=== PATIENT | male | born 1945 | race Caucasian/White ===

== ENCOUNTER → 2022-11-24 15:59 | Outpatient (CLI) | payer MEDICARE, OTHER, SELFPAY ==
[2022-11-24 16:44] LABS: Hematocrit 22.7 % (41-53); Mean Corpuscular Hemoglobin 32.6 PG (26-34); Mean Corpuscular Volume 93.1 fL (80-100); Platelet Count 142 X10^3/uL (150-400); Red Blood Cell Count 2.44 X10^6/uL (4.5-5.9); Red Cell Distribution Width 14.7 % (11.6-14.8); White Blood Cell Count 8.4 X10^3/uL (4.5-11.0)
[2022-11-24 17:09] LABS: Alanine Aminotransferase 29 IU/L (<50); Albumin 3.8 g/dL (3.5-5.0); Albumin Globulin Ratio 1.6 (1.0-2.8); Alkaline Phosphatase 50 U/L (38-126); Aspartate Aminotransferase 39 IU/L (17-59); BUN Creatinine Ratio 35.4 (6-22); Bilirubin Total 0.2 mg/dL (0.2-1.3); Blood Urea Nitrogen 28 mg/dL (9-20); Calcium 8.5 mg/dL (8.4-10.2); Carbon Dioxide 25 mmol/L (22-32); Chloride 106 mmol/L (98-107); Cholesterol 100 mg/dL (140-199); Estimated Glomerular Filt Rate > 60 mL/min (>60); Globulin 2.4 g/dL (1.7-4.1); Glucose 130 mg/dL (80-110); HDL Cholesterol 44 mg/dL (40-60); HEMOLYSIS < 15 (0-50); LDL Cholesterol Calculated 46 mg/dL (<100); Potassium 3.7 mmol/L (3.4-5.1); Sodium 136 mmol/L (137-145); Total Protein 6.2 g/dL (6.3-8.2); Triglycerides 51 mg/dL (35-150); VLDL Cholesterol Calculated 10 mg/dL (2-30)
[2022-11-24 17:18] LABS: NT-proBNP (BNP-Adult 18+) 154 pg/mL (<450)
[2022-11-24 17:34] LABS: Thyroid Stimulating Hormone 3.02 uIU/mL (0.47-4.68)
== END ==
PROVIDERS: Family Provider Family Medicine; PCP Family Medicine; Referring Provider Nurse Practitioner; Visit Provider Nurse Practitioner
DX: I45.10 Unspecified right bundle-branch block (principal); I25.10 Atherosclerotic heart disease of native coronary artery without angina pectoris; R06.09 Other forms of dyspnea; G71.3 Mitochondrial myopathy, not elsewhere classified
CPT/HCPCS: 36415; 80053; 80061; 83880; 84443; 85027

== ENCOUNTER 2022-11-26 10:43 | Inpatient (IN) | payer MEDICARE, OTHER, SELFPAY ==
[2022-11-26] VITALS (15 sets, daily range): BP systolic 118–151; BP diastolic 53–72; PULSE 50–63; RESP 12–19; TEMP 35.3–36.6; O2SAT 96–100; BMI 22.8
[2022-11-26] MEDS: PANTOPRAZOLE 40 MG VIAL 80 MG IV (11:05)
[2022-11-26 11:25] LABS: Add Manual Diff / Slide Review NO; Basophils Absolute Auto 0 /uL (0-100); Basophils Percent Auto 0.1 % (0-2); Eosinophils Absolute Auto 0 /uL (0-450); Hematocrit 21.3 % (41-53); Hemoglobin 7.2 g/dL (13.5-17.5); Lymphocytes Absolute Auto 1100 /uL (1100-4500); Lymphocytes Percent Auto 19.6 % (25-40); Mean Corpuscular HGB Conc 33.9 % (30-36); Mean Corpuscular Hemoglobin 31.9 PG (26-34); Mean Corpuscular Volume 94.2 fL (80-100); Monocytes Absolute Auto 500 /uL (0-900); Monocytes Percent Auto 8.6 % (3-14); Neutrophils Absolute Auto 3900 /uL (1500-7000); Neutrophils Percent Auto 71.7 % (50-75); Platelet Count 136 X10^3/uL (150-400); Red Blood Cell Count 2.27 X10^6/uL (4.5-5.9); Red Cell Distribution Width 15.5 % (11.6-14.8); White Blood Cell Count 5.5 X10^3/uL (4.5-11.0)
[2022-11-26 11:30] LABS: Prothrombin Time 11.2 SECONDS (10.1-12.7)
[2022-11-26 11:33] LABS: Alanine Aminotransferase 35 IU/L (<50); Albumin 3.7 g/dL (3.5-5.0); Albumin Globulin Ratio 1.5 (1.0-2.8); Alkaline Phosphatase 53 U/L (38-126); Aspartate Aminotransferase 37 IU/L (17-59); BUN Creatinine Ratio 23.4 (6-22); Bilirubin Total 0.3 mg/dL (0.2-1.3); Blood Urea Nitrogen 18 mg/dL (9-20); Calcium 8.2 mg/dL (8.4-10.2); Carbon Dioxide 24 mmol/L (22-32); Chloride 104 mmol/L (98-107); Estimated Glomerular Filt Rate > 60 mL/min (>60); Globulin 2.4 g/dL (1.7-4.1); Glucose 115 mg/dL (80-110); HEMOLYSIS < 15 (0-50); PTT Partial Thromboplastin Tim 23 SECONDS (26-36); Potassium 3.8 mmol/L (3.4-5.1); Sodium 135 mmol/L (137-145); Total Protein 6.1 g/dL (6.3-8.2)
--- NOTE | 2022-11-26 11:46 | ED_ITS ---
HPI - GI Bleed General Chief complaint: GI Bleed Stated complaint: DR bartholomew anemic needs blood Time Seen by Provider: 11/26/22 11:44 Source: patient Mode of arrival: Ambulatory History of Present Illness HPI Narrative: Patient is 77-year-old male presents today at request of manager multimedia. He is history of coronary artery disease he had stents placed in January of 2022 in you to presents today with anemia. He says he had an appointment with Cardiology this week for increasing shortness of breath with exertion routine blood showed anemia with a hemoglobin of 8.0 hematocrit of 22.7. He denies any black tarry stools but reports that he has had 1 episode of bright red blood. He is not ever had a colonoscopy. He denies any nausea or vomiting. He is had some increased fatigue. Related Data Home Medications Medication Instructions Recorded Confirmed aspirin 81 mg chewable tablet 81 mg PO DAILY 11/26/22 11/26/22 atorvastatin 40 mg tablet 40 mg PO DAILY 11/26/22 11/26/22 clopidogrel 75 mg tablet 75 mg PO DAILY 11/26/22 11/26/22 Allergies Allergy/AdvReac Type Severity Reaction Status Date / Time No Known Drug Allergies Allergy Verified 11/26/22 10:48 Review of Systems Review of Systems ROS Unobtainable: All systems reviewed & are unremarkable except as noted in HPI and below Patient History Family History Brother Age: 76 MS (multiple sclerosis) Social History household members: none Smoking Status: Unknown if ever smoked alcohol intake: current Smoking Status: Unknown if ever smoked alcohol intake frequency: 0-2 drinks per day Substance Use Type: does not use Exam Initial Vital Signs Initial Vital Signs: Vital Signs Temperature 97.0 F L 11/26/22 10:46 Pulse Rate 57 L 11/26/22 10:46 Respiratory Rate 15 11/26/22 10:46 Blood Pressure 151/67 H 11/26/22 10:46 Pulse Oximetry 100 11/26/22 10:46 Oxygen Delivery Method Room Air 11/26/22 10:46 GENERAL: Alert pleasant 77-year-old male and in no acute distress. HEENT: Head atraumatic,EOMI, pupils reactive, face symmetric, moist mucous membranes CARDIOVASCULAR: Regular rate and rhythm without murmurs, rubs or gallops. RESPIRATORY: Breath sounds equal bilaterally, no wheezes rales or rhonchi. ABDOMEN: Soft, nontender. Normoactive bowel sounds all 4 quadrants. No guarding or rebound. RECTAL: Deferred EXTREMITIES: Normal range of motion, no clubbing or edema. Neurovascularly intact NEUROLOGICAL: Alert and oriented x4. Cranial nerves intact SKIN: Warm, dry, no laceration, no petechiae, no rashes or lesions. Course Orders Ordered: ED Orders 11/26/22 11:00 EKG-12 Lead Stat 11/26/22 11:13 Complete Blood Count AUTO DIFF Stat Comprehensive Metabolic Panel Stat PRBC [Packed Cells] Stat PTT Partial Thromboplastin Aj Stat Prothrombin Time INR Stat Type and Screen Stat Acetaminophen (Acetaminophen 325 Mg Tablet) 650 mg PO Q6H PRN PRN Reason: Fever/Mild Pain (1-3) Atorvastatin Calcium (Atorvastatin 20 Mg Tablet) 10 mg PO BEDTIME HUMAIRA Melatonin (Melatonin 3 Mg Tablet) 6 mg PO BEDTIME PRN PRN Reason: Insomnia Naloxone HCl (Naloxone 0.4 Mg/Ml Vial) 0.2 mg IV Q2MIN PRN PRN Reason: Opiate Reversal Pantoprazole Sodium (Pantoprazole 40 Mg Vial) 40 mg IV BID HUMAIRA Sodium Chloride (Sodium Chloride 0.9% Flush) 10 ml IV PRN PRN PRN Reason: Flush Sodium Chloride (Sodium Chloride 0.9% Flush) 10 ml IV BID HUMAIRA Discontinued Medications Pantoprazole Sodium (Pantoprazole 40 Mg Vial) 80 mg IV NOW ONE Stop: 11/26/22 10:52 Last Admin: 11/26/22 11:05 Dose: 80 mg Documented By: LA Polyethylene Glycol/Electrolytes ([id number]/Sod Sulf,Bicarb,Cl/Kcl 4,000 Ml Solution) 4,000 ml PO NOW ONE Stop: 11/26/22 16:34 Last Admin: 11/26/22 18:22 Dose: 4,000 ml Documented By: ARCADIO Vital Signs Vital signs: Vital Signs - 8 hr 11/26/22 10:46 11/26/22 12:53 11/26/22 11:38 Temperature 97.0 F L 97.5 F L Pulse Rate 57 L 55 L 55 L Respiratory Rate 15 16 12 Blood Pressure 151/67 H 121/61 Pulse Oximetry 100 100 Oxygen Delivery Method Room Air 11/26/22 12:00 11/26/22 12:00 11/26/22 12:55 Temperature Pulse Rate 60 53 L Respiratory Rate 19 Blood Pressure 141/70 H Pulse Oximetry 100 100 Oxygen Delivery Method 11/26/22 12:55 11/26/22 13:00 Temperature Pulse Rate 55 L Respiratory Rate Blood Pressure 121/61 Pulse Oximetry 100 Oxygen Delivery Method MDM - GI Bleed Lab Data 11/26/22 17:29 11/26/22 11:13 Labs: Lab Results 11/26/22 11/26/22 11/26/22 Range/Units 11:13 11:13 11:13 WBC 5.5 (4.5-11.0) X10^3/uL RBC 2.27 L (4.5-5.9) X10^6/uL Hgb 7.2 L (13.5-17.5) g/dL Hct 21.3 L (41-53) % MCV 94.2 (80-100) fL MCH 31.9 (26-34) PG MCHC 33.9 (30-36) % RDW 15.5 H (11.6-14.8) % Plt Count 136 L (150-400) X10^3/uL Neut % (Auto) 71.7 (50-75) % Lymph % (Auto) 19.6 L (25-40) % [place] % (Auto) 8.6 (3-14) % Eos % (Auto) 0.0 L (2-4) % Baso % (Auto) 0.1 (0-2) % Neut # (Auto) 3900 (3034-6281) /uL Lymph # (Auto) 1100 (2851-9942) /uL [place] # (Auto) 500 (0-900) /uL Eos # (Auto) 0 (0-450) /uL Baso # (Auto) 0 (0-100) /uL PT 11.2 (10.1-12.7) SECONDS INR 1.0 (0.9-1.3) APTT 23 L (26-36) SECONDS Sodium 135 L (137-145) mmol/L Potassium 3.8 (3.4-5.1) mmol/L Chloride 104 (98-107) mmol/L Carbon Dioxide 24 (22-32) mmol/L BUN 18 (9-20) mg/dL Creatinine 0.77 (0.66-1.25) mg/dL Estimated GFR > 60 (>60) mL/min BUN/Creatinine Ratio 23.4 H (6-22) Glucose 115 H (80-110) mg/dL Calcium 8.2 L (8.4-10.2) mg/dL Magnesium (1.6-2.3) mg/dL Total Bilirubin 0.3 (0.2-1.3) mg/dL AST 37 (17-59) IU/L ALT 35 (<50) IU/L Alkaline Phosphatase 53 (38-126) U/L Total Protein 6.1 L (6.3-8.2) g/dL Albumin 3.7 (3.5-5.0) g/dL Globulin 2.4 (1.7-4.1) g/dL Albumin/Globulin Ratio 1.5 (1.0-2.8) Blood Type Antibody Screen Crossmatch 11/26/22 11/26/22 Range/Units 11:13 11:13 WBC (4.5-11.0) X10^3/uL RBC (4.5-5.9) X10^6/uL Hgb (13.5-17.5) g/dL Hct (41-53) % MCV (80-100) fL MCH (26-34) PG MCHC (30-36) % RDW (11.6-14.8) % Plt Count (150-400) X10^3/uL Neut % (Auto) (50-75) % Lymph % (Auto) (25-40) % [place] % (Auto) (3-14) % Eos % (Auto) (2-4) % Baso % (Auto) (0-2) % Neut # (Auto) (9638-4700) /uL Lymph # (Auto) (2995-2695) /uL [place] # (Auto) (0-900) /uL Eos # (Auto) (0-450) /uL Baso # (Auto) (0-100) /uL PT (10.1-12.7) SECONDS INR (0.9-1.3) APTT (26-36) SECONDS Sodium (137-145) mmol/L Potassium (3.4-5.1) mmol/L Chloride (98-107) mmol/L Carbon Dioxide (22-32) mmol/L BUN (9-20) mg/dL Creatinine (0.66-1.25) mg/dL Estimated GFR (>60) mL/min BUN/Creatinine Ratio (6-22) Glucose (80-110) mg/dL Calcium (8.4-10.2) mg/dL Magnesium 2.1 (1.6-2.3) mg/dL Total Bilirubin (0.2-1.3) mg/dL AST (17-59) IU/L ALT (<50) IU/L Alkaline Phosphatase (38-126) U/L Total Protein (6.3-8.2) g/dL Albumin (3.5-5.0) g/dL Globulin (1.7-4.1) g/dL Albumin/Globulin Ratio (1.0-2.8) Blood Type O Positive Antibody Screen Negative Crossmatch See Detail Point of Care Testing Stool Occult Blood Positive ECG Data Interpretation: Sinus rhythm rate 55 KS interval 156 QRS [address] changes T-wave inversions MDM Narrative Medical decision making narrative: Patient is 77-year-old male with known history of coronary artery disease presenting today with increasing shortness of breath with exertion and fatigue. He is found to be anemic today with hemoglobin now 7.2 and hematocrit 21.3. Coags are within normal limits. High suspicion for slow GI bleed although patient denies symptoms. He is hemodynamically stable without any hypotension or tachycardia. No significant electrolyte abnormality or AK. He is given 80 mg of Protonix in the ED and 2 units of packed red blood cells have been ordered. Dr. Vines, evaluation engineer cardiology updated on patient's acute bleeding and taking Plavix secondary to recent stent placement with less than 1 year. He recommended stopping Plavix actively bleeding. Dr. Rodrigues updated on patient's symptoms test results and accepts patient Dr. Lopez notified Discharge Plan Departure Patient Disposition: Admitted as Observation Clinical Impression: Acute GI bleeding, Anemia Admit Date/Time: 11/26/22 13:01 Admit Provider: Alden Rodrigues
--- NOTE | 2022-11-26 13:09 | PC.NURSE ---
Report given to CESARIO Soria AC. Pt being transferred to acute care with blood infusing. [place].
--- NOTE | 2022-11-26 13:45 | PM.HP.1 ---
History of Present Illness History of Present Illness Chief complaint: DR bartholomew anemic needs blood Narrative: Karson Montano is a 77-year-old male with past medical history of coronary artery disease s/p coronary stents in January 2022, and hyperlipidemia who presents with acute bloody diarrhea. Patient states he began feeling more fatigued and SOB earlier this week. Then this morning he developed bloody stool. He has not noticed any blood in his stool or black stools in the past. He was found to have a Hgb of 8 which then dropped to 7.2 in the ED. Given 2 units of PRBC and admitted for colonoscopy. Patient says he has never had a colonoscopy. He doesn't smoke. He is on plavix for a heart stent in Jan 2022. Cardiology contacted by the ED who recommended stopping plavix and anemia workup. [facility] Family History (Updated 10/01/16 @ 00:00 by Conversion Provider) Brother Age: 76 MS (multiple sclerosis) Social History household members: none Smoking Status: Unknown if ever smoked alcohol intake: current Meds Home Medications and Allergies Home Medications Medication Instructions Recorded Confirmed Type atorvastatin 10 mg tablet (Lipitor) 10 mg PO HS #90 tabs 11/15/16 11/26/22 Rx clopidogrel 75 mg tablet 75 mg PO DAILY 11/26/22 11/26/22 History methylprednisolone 4 mg tablets in 0 mg PO DIRECTED 11/26/22 11/26/22 History a dose pack Allergies Allergy/AdvReac Type Severity Reaction Status Date / Time No Known Drug Allergies Allergy Verified 11/26/22 10:48 Review of Systems Review of Systems Narrative: All other systems reviewed with the patient and are negative unless otherwise stated. Exam Vital Signs (past 8 hours): - 11/26/22 10:46 11/26/22 12:53 11/26/22 11:38 Temperature 97.0 F L 97.5 F L Pulse Rate 57 L 55 L 55 L Respiratory Rate 15 16 12 Blood Pressure 151/67 H 121/61 Pulse Oximetry 100 100 Oxygen Delivery Method Room Air 11/26/22 12:00 11/26/22 12:00 11/26/22 12:55 Temperature Pulse Rate 60 53 L Respiratory Rate 19 Blood Pressure 141/70 H Pulse Oximetry 100 100 Oxygen Delivery Method 11/26/22 12:55 11/26/22 13:00 Temperature Pulse Rate 55 L Respiratory Rate Blood Pressure 121/61 Pulse Oximetry 100 Oxygen Delivery Method Oxygen Delivery Method Room Air Narrative Exam Narrative: GEN: no acute distress HEENT: moist mucous membranes, PERRL NECK: trachea midline, no JVD CV: regular rate and rhythm, no murmurs PULM: clear bilaterally ABD: soft, nontender, nondistended, no organomegaly EXT: warm and well perfused with no edema NEURO: awake, alert, oriented, no focal deficits Objective Labs 11/26/22 11:13 11/26/22 11:13 Labs: Laboratory Results - last 24 hr 11/26/22 11/26/22 11/26/22 11:13 11:13 11:13 WBC 5.5 RBC 2.27 L Hgb 7.2 L Hct 21.3 L MCV 94.2 MCH 31.9 MCHC 33.9 RDW 15.5 H Plt Count 136 L Neut % (Auto) 71.7 Lymph % (Auto) 19.6 L [place] % (Auto) 8.6 Eos % (Auto) 0.0 L Baso % (Auto) 0.1 Neut # (Auto) 3900 Lymph # (Auto) 1100 [place] # (Auto) 500 Eos # (Auto) 0 Baso # (Auto) 0 PT 11.2 INR 1.0 APTT 23 L Sodium 135 L Potassium 3.8 Chloride 104 Carbon Dioxide 24 BUN 18 Creatinine 0.77 Estimated GFR > 60 BUN/Creatinine Ratio 23.4 H Glucose 115 H Calcium 8.2 L Total Bilirubin 0.3 AST 37 ALT 35 Alkaline Phosphatase 53 Total Protein 6.1 L Albumin 3.7 Globulin 2.4 Albumin/Globulin Ratio 1.5 Blood Type Antibody Screen Crossmatch 11/26/22 11:13 WBC RBC Hgb Hct MCV MCH MCHC RDW Plt Count Neut % (Auto) Lymph % (Auto) [place] % (Auto) Eos % (Auto) Baso % (Auto) Neut # (Auto) Lymph # (Auto) [place] # (Auto) Eos # (Auto) Baso # (Auto) PT INR APTT Sodium Potassium Chloride Carbon Dioxide BUN Creatinine Estimated GFR BUN/Creatinine Ratio Glucose Calcium Total Bilirubin AST ALT Alkaline Phosphatase Total Protein Albumin Globulin Albumin/Globulin Ratio Blood Type O Positive Antibody Screen Negative Crossmatch See Detail Assessment & Plan Assessment & Plan narrative: # acute GI bleed -patient presents with bloody stools -etiology unclear as patient has never had a colonoscopy, differential includes colon cancer, diverticulosis or hemorrhoids -PPI b.i.d. -general surgery consulted, prep for colonoscopy in a.m. -clear liquid diet # acute blood loss anemia -hemoglobin 7.2 down from 8 on 11/24, ED ordered 2 units PRBCs -trend hemoglobin q.6 hours -transfuse less than 8 hemoglobin due to CAD # CAD s/p stents -currently on Plavix since January 2022 -ED spoke with cards who was okay with stopping Plavix early due to GI bleed -hold home Plavix # hyperlipidemia -continue home statin Code status is full code. DVT prophylaxis with SCDs. Proxy is friend Sherley. I have reviewed home meds and used all available resources to reconcile the home meds. This patient will be admitted as inpatient and will require greater than 2 midnights of hospital time to treat acute GI bleed.
[2022-11-26 14:14] LABS: Magnesium 2.1 mg/dL (1.6-2.3)
--- NOTE | 2022-11-26 16:03 | PC.NURSE ---
Patient arrived from ED to room 218 with first unit of Blood running. VSS, afebrile on RA. SB on telemetry per patient he is an avid hiker. He denies dizziness, n/v, SOB. He reports last bloody BM at approximately 945. Currently receiving second unit of blood, and tolerating well. VSS, afebrile. He is oriented to the room and unit routine. Continuous monitoring.
[2022-11-26 17:58] LABS: Hemoglobin 9.2 g/dL (13.5-17.5)
[2022-11-26] MEDS: PEG3350/SOD SULF,BICARB,CL/KCL 4,000 ML SOLUTION 4000 ML PO (18:22)
[2022-11-26] MEDS: ATORVASTATIN 20 MG TABLET 10 MG PO (20:48)
[2022-11-26] MEDS: SODIUM CHLORIDE 0.9% FLUSH 10 ML IV (20:48)
[2022-11-26] MEDS: PANTOPRAZOLE 40 MG VIAL IV (20:48)
[2022-11-26 21:01] LABS: Appearance Urine UA CLEAR; Bilirubin Urine UA NEGATIVE (NEGATIVE); Color Urine UA YELLOW; Glucose Urine UA NEGATIVE (Negative); Ketones Urine UA NEGATIVE (NEGATIVE); Leukocyte Esterase Urine UA NEGATIVE (NEGATIVE); Nitrite Urine UA NEGATIVE (Negative); Occult Blood Urine UA NEGATIVE (Negative); Protein Urine UA NEGATIVE (Negative); Urobilinogen Urine UA 0.2 E.U./dL (0.2)
[2022-11-26 21:13] LABS: Bacteria Urine None Seen; Culture Indicated Urine Cult Not Indicated; RBC Urine None Seen (0-5/HPF); Squamous Epithelial Cell Urine None Seen (0-5/HPF); WBC Urine None Seen (0-5/HPF)
--- NOTE | 2022-11-26 22:13 | PC.NURSE ---
Patient is alert and oriented. Breath sounds CTA with RA sat of 99%. HRR but bradycardic with rate of 53 per telemtry reading which was SB w/BBB. Denies dizziness or lightheadedness. Denies nausea but is having abdominal cramps related to Go-[place]yt[place] prep. BT are hypoactive and abdomen is slightly distended. Denies dysuria with urination. Is independent with mobility. Wearing bilateral calf SCD's which he is able to get on/off independently. Fall risk score is moderate but alarm not in use at this time; patient verbalizes to call for assist if feeling weak or dizzy when getting out of bed.
[2022-11-26] MEDS: SODIUM CHLORIDE 0.9% 1,000 ML 100 ML IV (23:58)
[2022-11-27] VITALS (11 sets, daily range): BP systolic 82–143; BP diastolic 41–69; PULSE 42–56; RESP 12–20; TEMP 35.9–36.8; O2SAT 96–100; BMI 22.8
--- NOTE | 2022-11-27 | PATH_ITS ---
[facility] Accession Number: [id number] No. of containers..01 Tissue . 01 Material submitted: . gastrointestinal site - GASTRIC BIOPSY . 01 Diagnosis: SPecimen designated Gastric, Biopsy: Small bowel type mucosa with chronic and focal mild active inflammation. No Helicobacter pylori organisms identified on immunohistochemical evaluation. No dysplasia, or malignancy identified. See comment. [facility] 12/06/2022 1323 Local . 01 Comment: Correlation with biopsy site is recommended. . 01 Electronically signed: . April Patel MD, Pathologist NPI- [id number] . 01 Gross description: . GASTRIC BIOPSY: Received in formalin are 2 fragment(s) of hodges, soft tissue measuring 0.1 x 0.1 x 0.1 cm to 0.3 x 0.3 x 0.3 cm submitted entirely in 1 cassette(s) /[facility] 12/02/2022 0107 Local . 01 Microscopic: . A Helicobacter pylori immunostain is performed and no Helicobacter pylori organisms are seen. The control stained as expected. . . . * This test was developed and its performance characteristics determined by [facility]. It has not been cleared or approved by the U.S. Food and Drug Administration. The FDA has determined that such clearance or approval is not necessary. This test is used for clinical purposes. It should not be regarded as investigational or for research. . 01 Pathologist provided ICD-10: K29.70 . 01 CPT . 420654, M60645 Specimen Comment: A courtesy copy of this report has been sent to [phone] Performed at: 01 [facility] [address] [place] [address] [address], [place], [place] [id number] MD Ed Torres MD Phone: [phone]
[2022-11-27 04:36] LABS: Add Manual Diff / Slide Review NO; BUN Creatinine Ratio 19.5 (6-22); Basophils Absolute Auto 0 /uL (0-100); Basophils Percent Auto 0.2 % (0-2); Blood Urea Nitrogen 16 mg/dL (9-20); Calcium 7.5 mg/dL (8.4-10.2); Carbon Dioxide 27 mmol/L (22-32); Chloride 104 mmol/L (98-107); Eosinophils Absolute Auto 100 /uL (0-450); Eosinophils Percent Auto 1.2 % (2-4); Estimated Glomerular Filt Rate > 60 mL/min (>60); Glucose 98 mg/dL (80-110); HEMOLYSIS < 15 (0-50); Hematocrit 24.3 % (41-53); Hemoglobin 8.4 g/dL (13.5-17.5); Lymphocytes Absolute Auto 2500 /uL (1100-4500); Lymphocytes Percent Auto 43.3 % (25-40); Mean Corpuscular HGB Conc 34.6 % (30-36); Mean Corpuscular Hemoglobin 31.7 PG (26-34); Mean Corpuscular Volume 91.6 fL (80-100); Monocytes Absolute Auto 500 /uL (0-900); Monocytes Percent Auto 8.9 % (3-14); Neutrophils Absolute Auto 2700 /uL (1500-7000); Neutrophils Percent Auto 46.4 % (50-75); Platelet Count 120 X10^3/uL (150-400); Potassium 3.3 mmol/L (3.4-5.1); Red Blood Cell Count 2.65 X10^6/uL (4.5-5.9); Red Cell Distribution Width 15.7 % (11.6-14.8); Sodium 135 mmol/L (137-145); White Blood Cell Count 5.8 X10^3/uL (4.5-11.0)
[2022-11-27] MEDS: POTASSIUM CHLORIDE 20 MEQ TAB 40 MEQ PO (07:42)
[2022-11-27] MEDS: PANTOPRAZOLE 40 MG VIAL IV (08:46)
--- NOTE | 2022-11-27 09:31 | CM.DANOTE ---
DCP: Chart review for case, met with patient at bedside, they agree to case management assessment. Completed DCP assessment based on information available. Patient is 77 year old admitted for anemia. States he was sent over from clinic PCP Enedina No secondary to lower GI bleed and known anemia. States SD last year with PCI in [facility], and FU with Dr. Jane Steward cardiology in [place] at [facility]. State he has had his 2 planned units of PRBC and done prep for colonoscopy. States looking forward to going home when workup done. PCP: Enedina No, Payer: Medicare DME: None DCP: DC home, states his care is in parking lot. Pending medical clearances. Jessica Owens RN CM Discharge Planning/Care Management CM Discharge Assessment Start: 11/27/22 09:26 Freq: Status: Active Protocol: Document 11/27/22 09:26 BQ (Rec: 11/27/22 09:29 BQ [id number]) Discharge Planning Assessment Assigned Senior Java Programmer Analyst Jessica Owens DPOA/Assigned Designee Name Son Advance Directives? No History Provided By Patient Has Patient been admitted in last 30 No days? Prior Living Arrangements House Household Members none Type of transporation used prior to Drives own vehicle admit Independent with ADL's Yes Is patient alert and oriented? Yes Caregiver for Another No Barriers to Discharge No Referrals Initiated None needed Whiteboard Updated in Patient Room with Yes name and ext. # of Senior Java Programmer Analyst Review Status In Process Next Review Type Continued Stay Review
[2022-11-27] MEDS: SODIUM CHLORIDE 0.9% 1,000 ML 100 ML IV (10:37)
--- NOTE | 2022-11-27 11:41 | PM.CN ---
History of Present Illness Consult details Date Patient Seen: 11/27/22 Time Patient Seen: 11:41 Chief complaint: DR [place] anemic needs blood Narrative: 77-year-old man admitted to the hospital for management of a GI bleed. He presented to the [facility] Emergency Department 11/26 following blood per rectum and associated shortness of breath. Initial hematocrit was 21 platelets 120 and he received 2 units of packed red blood cells now 24. He is never had a prior colonoscopy. No history of peptic ulcer disease. He has a history of coronary artery stent last year and he takes Plavix as well as 81 mg of aspirin daily. Cardiology service was contacted by the emergency department recommended discontinuation of his antiplatelet medication and anemia workup. Meds Home Medications and Allergies Home Medications Medication Instructions Recorded Confirmed Type aspirin 81 mg chewable tablet 81 mg PO DAILY 11/26/22 11/26/22 History atorvastatin 40 mg tablet 40 mg PO DAILY 11/26/22 11/26/22 History clopidogrel 75 mg tablet 75 mg PO DAILY 11/26/22 11/26/22 History Allergies Allergy/AdvReac Type Severity Reaction Status Date / Time No Known Drug Allergies Allergy Verified 11/26/22 10:48 Exam Vital Signs (past 8 hours): - 11/27/22 04:06 11/27/22 08:13 Temperature 96.6 F L 97.4 F L Pulse Rate 55 L 54 L Respiratory Rate 20 17 Blood Pressure 124/52 L 122/60 Pulse Oximetry 100 99 Oxygen Flow Rate 0 0 Oxygen Delivery Method Room Air Oxygen Flow Rate 0 Narrative Exam Narrative: General adult man alert oriented no acute distress Abdomen soft nontender nondistended. Objective Labs 11/27/22 03:50 11/27/22 03:50 Labs: Laboratory Results - last 24 hr 11/26/22 11/26/22 11/26/22 11:13 11:13 17:29 WBC RBC Hgb 9.2 L Hct MCV MCH MCHC RDW Plt Count Neut % (Auto) Lymph % (Auto) [place] % (Auto) Eos % (Auto) Baso % (Auto) Neut # (Auto) Lymph # (Auto) [place] # (Auto) Eos # (Auto) Baso # (Auto) Sodium Potassium Chloride Carbon Dioxide BUN Creatinine Estimated GFR BUN/Creatinine Ratio Glucose Calcium Magnesium 2.1 Urine Color Urine Appearance Urine pH Ur Specific [place] Urine Protein Urine Glucose (UA) Urine Ketones Urine Occult Blood Urine Nitrate Urine Bilirubin Urine Urobilinogen Ur Leukocyte Esterase Urine RBC Urine WBC Ur Squamous Epith Cells Urine Bacteria Ur Culture Indicated? Blood Type O Positive Antibody Screen Negative Crossmatch See Detail 11/26/22 11/26/22 11/27/22 20:35 23:00 03:50 WBC 5.8 RBC 2.65 L Hgb 9.0 L 8.4 L Hct 24.3 L MCV 91.6 MCH 31.7 MCHC 34.6 RDW 15.7 H Plt Count 120 L Neut % (Auto) 46.4 L D Lymph % (Auto) 43.3 H D [place] % (Auto) 8.9 Eos % (Auto) 1.2 L Baso % (Auto) 0.2 Neut # (Auto) 2700 Lymph # (Auto) 2500 [place] # (Auto) 500 Eos # (Auto) 100 Baso # (Auto) 0 Sodium Potassium Chloride Carbon Dioxide BUN Creatinine Estimated GFR BUN/Creatinine Ratio Glucose Calcium Magnesium Urine Color Yellow Urine Appearance Clear Urine pH 7.0 Ur Specific [place] 1.010 Urine Protein Negative Urine Glucose (UA) Negative Urine Ketones Negative Urine Occult Blood Negative Urine Nitrate Negative Urine Bilirubin Negative Urine Urobilinogen 0.2 Ur Leukocyte Esterase Negative Urine RBC None seen Urine WBC None seen Ur Squamous Epith Cells None seen Urine Bacteria None seen Ur Culture Indicated? Cult not indicated Blood Type Antibody Screen Crossmatch 11/27/22 03:50 WBC RBC Hgb Hct MCV MCH MCHC RDW Plt Count Neut % (Auto) Lymph % (Auto) [place] % (Auto) Eos % (Auto) Baso % (Auto) Neut # (Auto) Lymph # (Auto) [place] # (Auto) Eos # (Auto) Baso # (Auto) Sodium 135 L Potassium 3.3 L Chloride 104 Carbon Dioxide 27 BUN 16 Creatinine 0.82 Estimated GFR > 60 BUN/Creatinine Ratio 19.5 Glucose 98 Calcium 7.5 L Magnesium Urine Color Urine Appearance Urine pH Ur Specific [place] Urine Protein Urine Glucose (UA) Urine Ketones Urine Occult Blood Urine Nitrate Urine Bilirubin Urine Urobilinogen Ur Leukocyte Esterase Urine RBC Urine WBC Ur Squamous Epith Cells Urine Bacteria Ur Culture Indicated? Blood Type Antibody Screen Crossmatch [facility] Family History Brother Age: 76 MS (multiple sclerosis) Social History household members: none Tobacco & Substance Use Smoking Status: Unknown if ever smoked alcohol intake: current Assessment & Plan Assessment and plan (1) Acute GI bleeding: Status: Acute Assessment & Plan narrative: 77-year-old man on antiplatelet medication admitted to the hospital with a GI bleed hemodynamically stable. I discussed my recommendations with the patient that we proceed with esophagoduodenoscopy to evaluate for upper GI bleed sources as well as colonoscopy. We discussed possible diagnoses including both benign and malignant disease. An overview of the procedure was described. Procedural risks including hemorrhage, missed diagnosis, intestinal injury any anesthetic complications were reviewed. His questions have been answered and he is in agreement with this plan.
--- NOTE | 2022-11-27 13:30 | PM.OP.EC ---
Operative Date/Time/Diagnoses Date of procedure: 11/27/22 Time of procedure: 13:30 Pre-op diagnosis: GI bleed Post-op diagnosis: other (Gastritis, internal hemorrhoids) Procedure & Clinicians Study performed: Esophagoduodenoscopy and colonoscopy Same procedure as scheduled: Yes Indications: GI bleed Surgeon: Mariano Kowalski Procedure Notes Procedure in detail: The history and physical was performed/updated and the patient is ASA class is 2 E. The procedure was discussed in detail with the patient. Potential risks complications including infection, bleeding, missed diagnosis, perforation, need for surgery, and were explained. Their questions were answered and informed consent was obtained. Patient placed in left lateral decubitus position. Time out was performed. Procedural sedation was administered by Anesthesia. A bite block was placed. the scope was inserted into the mouth and advanced through the esophagus and into the stomach. There was gastritis most notable within the pyloric channel biopsy was performed with forceps. No distinct ulceration. The duodenum was normal to the 2nd portion. The scope was withdrawn into the esophagus the Z line was seen at 40 cm from the incisions. There was no Mccall's esophagitis, esophageal masses or strictures. Stomach was desufflated and scope removed. Examination began with a thorough inspection of the perianal area there was no evidence of fissures, fistulae, external hemorrhoids or cutaneous malignancy. The colonoscopy scope was then placed into the anal canal and was advanced to the cecum, which was identified by the ileocecal valve, the appendiceal orifice and the confluence of the taenia. The scope was then slowly withdrawn examining colon thoroughly in all directions, irrigating it of any residual stool. Colon was notable for residual melanotic stool. Quality of the prep was fair but there were no major masses or polyps. There were grade 2 internal hemorrhoids on retroflexion within the rectum. The withdrawal time was 7 minutes. Findings: gastritis Specimen(s): other (Gastric) Impression: Gastritis Post-procedure Plan for aftercare: Continue PPI. Stable for discharge Disposition: same day surgery
--- NOTE | 2022-11-27 15:01 | PM.DS.1 ---
History of Present Illness History of Present Illness Chief complaint: DR bartholomew anemic needs blood Narrative: Karson Montano is a 77-year-old male with past medical history of coronary artery disease s/p coronary stents in January 2022, and hyperlipidemia who presents with acute bloody diarrhea. Patient states he began feeling more fatigued and SOB earlier this week. Then this morning he developed bloody stool. He has not noticed any blood in his stool or black stools in the past. He was found to have a Hgb of 8 which then dropped to 7.2 in the ED. Given 2 units of PRBC and admitted for colonoscopy. Patient says he has never had a colonoscopy. He doesn't smoke. He is on plavix for a heart stent in Jan 2022. Cardiology contacted by the ED who recommended stopping plavix and anemia workup. Discharge Providers Provider Date of admission: 11/26/22 13:01 Discharge Date: 11/27/22 Primary care physician: Enedina No MD Consults: 11/26/22 13:21 Consult to General Surgery Routine Comment: Consulting Provider: Analy Bacon Reason for consultation: GI bleed Has provider been notified: Yes Discharge provider: Alden Rodrigues DO Summary Hospital Course Discharge Diagnosis: # acute GI bleed -patient presents with bloody stools -etiology unclear as patient has never had a colonoscopy, differential includes colon cancer, diverticulosis or hemorrhoids -PPI b.i.d. -general surgery consulted and patient underwent EGD colonoscopy on 11/27 which only showed internal hemorrhoids, old blood in colon and gastritis, no active bleeding -discharged on daily PPI x4 weeks # acute blood loss anemia -hemoglobin 7.2 down from 8 on 11/24, ED ordered 2 units PRBCs -trend hemoglobin q.6 hours -transfuse less than 8 hemoglobin due to CAD -Hgb stable # CAD s/p stents -currently on Plavix since January 2022 -ED spoke with cards who was okay with stopping Plavix early due to GI bleed -hold home Plavix -resumed home aspirin on dc with PPI # hyperlipidemia -continue home statin Hospital Course: Admitted for hematochezia and found to have blood counts of 7.2. Was given 2 units of PRBCs. Underwent EGD and colonoscopy which only showed gastritis, internal hemorrhoids and old blood in the colon. No active bleeding. Was placed on daily PPI for 4 weeks. Spoke with Cardiology who recommended stopping Plavix. Home aspirin was continued. And was advised that if he continues to have GI bleed in the future he should see GI for a PillCam study. He should also have his blood counts checked in 1 month by his PCP. Time Spent with Patient Time spent: Greater than 30 minutes Exam Vital Signs (past 8 hours): - 11/27/22 08:13 11/27/22 12:53 11/27/22 13:33 Temperature 97.4 F L 98.3 F 97.2 F L Pulse Rate 54 L 50 L 42 L Respiratory Rate 17 16 20 Blood Pressure 122/60 141/69 H 82/41 L Pulse Oximetry 99 100 98 Oxygen Delivery Method Room Air Room Air Oxygen Flow Rate 0 11/27/22 13:37 11/27/22 13:44 11/27/22 13:48 Temperature Pulse Rate 49 L 53 L 56 L Respiratory Rate 12 15 19 Blood Pressure 95/44 L 119/50 L 117/67 Pulse Oximetry 96 98 100 Oxygen Delivery Method Room Air Room Air Room Air Oxygen Flow Rate 11/27/22 13:38 11/27/22 13:00 Temperature 96.6 F L Pulse Rate 51 L 53 L Respiratory Rate 13 17 Blood Pressure 89/48 L 143/51 H Pulse Oximetry 100 100 Oxygen Delivery Method Room Air Oxygen Flow Rate 0 Oxygen Delivery Method Room Air Oxygen Flow Rate 0 Narrative Exam Narrative: GEN: no acute distress HEENT: moist mucous membranes, PERRL NECK: trachea midline, no JVD CV: regular rate and rhythm, no murmurs PULM: clear bilaterally ABD: soft, nontender, nondistended, no organomegaly EXT: warm and well perfused with no edema NEURO: awake, alert, oriented, no focal deficits Objective Labs 11/27/22 03:50 11/27/22 03:50 Labs: Laboratory Results - last 24 hr 11/26/22 11/26/22 11/26/22 11:13 17:29 20:35 WBC RBC Hgb 9.2 L Hct MCV MCH MCHC RDW Plt Count Neut % (Auto) Lymph % (Auto) [place] % (Auto) Eos % (Auto) Baso % (Auto) Neut # (Auto) Lymph # (Auto) [place] # (Auto) Eos # (Auto) Baso # (Auto) Sodium Potassium Chloride Carbon Dioxide BUN Creatinine Estimated GFR BUN/Creatinine Ratio Glucose Calcium Urine Color Yellow Urine Appearance Clear Urine pH 7.0 Ur Specific [place] 1.010 Urine Protein Negative Urine Glucose (UA) Negative Urine Ketones Negative Urine Occult Blood Negative Urine Nitrate Negative Urine Bilirubin Negative Urine Urobilinogen 0.2 Ur Leukocyte Esterase Negative Urine RBC None seen Urine WBC None seen Ur Squamous Epith Cells None seen Urine Bacteria None seen Ur Culture Indicated? Cult not indicated Blood Type O Positive Antibody Screen Negative Crossmatch See Detail 11/26/22 11/27/22 11/27/22 23:00 03:50 03:50 WBC 5.8 RBC 2.65 L Hgb 9.0 L 8.4 L Hct 24.3 L MCV 91.6 MCH 31.7 MCHC 34.6 RDW 15.7 H Plt Count 120 L Neut % (Auto) 46.4 L D Lymph % (Auto) 43.3 H D [place] % (Auto) 8.9 Eos % (Auto) 1.2 L Baso % (Auto) 0.2 Neut # (Auto) 2700 Lymph # (Auto) 2500 [place] # (Auto) 500 Eos # (Auto) 100 Baso # (Auto) 0 Sodium 135 L Potassium 3.3 L Chloride 104 Carbon Dioxide 27 BUN 16 Creatinine 0.82 Estimated GFR > 60 BUN/Creatinine Ratio 19.5 Glucose 98 Calcium 7.5 L Urine Color Urine Appearance Urine pH Ur Specific [place] Urine Protein Urine Glucose (UA) Urine Ketones Urine Occult Blood Urine Nitrate Urine Bilirubin Urine Urobilinogen Ur Leukocyte Esterase Urine RBC Urine WBC Ur Squamous Epith Cells Urine Bacteria Ur Culture Indicated? Blood Type Antibody Screen Crossmatch [facility] Family History Brother Age: 76 MS (multiple sclerosis) Social History household members: none Smoking Status: Unknown if ever smoked alcohol intake: current Discharge Plan Discharge Plan Provider Discharge Comment: You were admitted with acute GI bleeding and found to have low blood counts. We stopped your Plavix with the okay from cardiology. Endoscopy and colonoscopy which only showed gastritis and some internal hemorrhoids. Old blood was seen in the colon but no active bleeding was found. Please take Protonix daily for 30 days to heal your gastritis. You may continue taking aspirin daily for your heart. I would have your blood counts checked in a month by your PCP. If you bleed again I would get a referral to see GI to do a PillCam study. Discharge orders & Medications Discharge Orders: Discharge (Order); Ordered 11/27/22 Ordered By: Alden Rodrigues Prescriptions: New pantoprazole [Protonix] 40 mg tablet,delayed release (DR/EC) 40 mg PO DAILY 28 Days Qty: 30 0RF Continued atorvastatin 40 mg tablet 40 mg PO DAILY aspirin 81 mg Tablet,Chewable 81 mg PO DAILY Discontinued clopidogrel 75 mg tablet 75 mg PO DAILY Follow up/Referrals: Enedina No MD [Primary Care Provider] - 2 Weeks Visit Report/Discharge Packet Stand Alone Forms: Patient Portal/API, Stroke Signs & Symptoms Discharge Data Primary Care Provider: Enedina No
--- NOTE | 2022-11-27 17:35 | PC.NURSE ---
Pt is A&Ox4. VSS, HR bradycardic 50's per baseline. He is on RA and independent in the room. He is kept NPO for procedure and taken to PRE OP early this afternoon. He returns from PACU A&Ox4, slightly groggy from anesthesia. He denies dizziness, VSS, afebrile. He tolerates lunch and dinner well and is ambulatory in his room. MD at bedside this evening clearing patient for discharge home. Patient instructed to call friend for a ride as he parked his vehicle here. He acknowledged agreement and understanding. He verbalized understanding of meds, symptoms worsening as well as follow up needed appointments. Heis escorted via w/ch to hospital entrance in [facility] with all of his belongings including cell phone and wallet for discharge home at approximately 1720.
== END 2022-11-27 17:20 | disposition home or self-care (01) | DRG 378 ==
LOC: ED 13:00 → AC 13:13
PROVIDERS: Surgery; Admitting Provider Student in an Organized Health Care Education/Training Program; Emergency Provider Emergency Medicine; Family Provider Family Medicine; PCP Family Medicine; Referring Provider Emergency Medicine; Visit Provider Student in an Organized Health Care Education/Training Program
PROC: 0DJD8ZZ Inspection of Lower Intestinal Tract, Via Natural or Artificial Opening Endoscopic (ICD-10-PCS; CPT 45378; principal; 2022-11-27 13:00)
PROC: 0DJ08ZZ Inspection of Upper Intestinal Tract, Via Natural or Artificial Opening Endoscopic (ICD-10-PCS; CPT 43235; 2022-11-27 13:00)
DX: K29.71 Gastritis, unspecified, with bleeding (principal); D62 Acute posthemorrhagic anemia; K64.8 Other hemorrhoids; I25.10 Atherosclerotic heart disease of native coronary artery without angina pectoris; E78.5 Hyperlipidemia, unspecified; Z95.5 Presence of coronary angioplasty implant and graft; Z79.02 Long term (current) use of antithrombotics/antiplatelets
CPT/HCPCS: 36415; 36430; 43239; 45378; 80048; 80053; 80061; 81001; 82272; 83735; 83880; 84443; 85018; 85025; 85027; 85610; 85730; 86850; 86900; 86901; 93005; 96374; 99232; 99285; P9016; C9113; J2704

== ENCOUNTER 2023-01-18 18:07 | Emergency (ER) | payer MEDICARE, OTHER, SELFPAY ==
[2022-11-26 13:55] VITALS: BMI 22.8
[2023-01-18 18:46] VITALS: BP 133/63; PULSE 53; RESP 14; TEMP 36.6; O2SAT 97; BMI 22.9
--- NOTE | 2023-01-18 19:02 | ED_ITS ---
HPI - Extremity Injury (Lower) General Chief Complaint: Extremity Injury, Lower Stated Complaint: increasing pain in Rhip T-1 Time Seen by Provider: 01/18/23 19:01 Source: patient Mode of arrival: Wheelchair History of Present Illness HPI Narrative: 77-year-old male with a history of hyperlipidemia presents with family in the chief complaint of severe right hip pain when ambulating. 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 He did not fall on it or suffer any direct traumatic injury. He had significant pain with weight-bearing and noted improvement when sitting. He denies any numbness, tingling or weakness. He is otherwise well and free of complaint. He presented to the emergency department in [place] [employer] yesterday and had an x-ray that showed no fracture that was obvious but suggested there may be an avulsion versus calcific tendinosis and an MRI was ordered which showed no significant traumatic injury. He was given a prescription for Percocet and encouraged to return if symptoms worsened. He denies any new trauma or injury but states that over the course of the day his pain has been significant when he tries to walk. Related Data Home Medications Medication Instructions Recorded Confirmed aspirin 81 mg chewable tablet 81 mg PO DAILY 11/26/22 11/26/22 atorvastatin 40 mg tablet 40 mg PO DAILY 11/26/22 11/26/22 Allergies Allergy/AdvReac Type Severity Reaction Status Date / Time No Known Drug Allergies Allergy Verified 01/18/23 18:51 Review of Systems Review of Systems Narrative: GENERAL: Denies chills, fatigue, malaise, fever, sweats. HEENT: Denies sinus pain, ear pain, sore throat, difficulty swallowing, dizziness. RESPIRATORY: Denies dyspnea, cough, wheezing, hemoptysis, sputum. CARDIOVASCULAR: Denies chest pain, palpitations, orthopnea, edema, GASTROINTESTINAL: Denies nausea, vomiting, abdominal pain, diarrhea, constipation, melena. : Denies dysuria, frequency, incontinence, hematuria, urinary retention. MUSCULOSKELETAL: See HPI SKIN: Denies rash, skin lesions, or other NEUROLOGIC: Denies weakness, headache, numbness, change in speech, confusion, seizures, incoordination. PSYCHIATRIC: No concerning psychosocial issues. 12 point review of systems is negative except for those stated above Patient History Family History Brother Age: 76 MS (multiple sclerosis) Social History household members: none Smoking Status: Unknown if ever smoked alcohol intake: current Smoking Status: Unknown if ever smoked alcohol intake frequency: 0-2 drinks per day Substance Use Type: does not use Exam Narrative Exam Narrative: GENERAL: [77] year old patient appears stated age. Well-developed patient, in mild distress. HEAD: Atraumatic. Normocephalic. EYES: Pupils equal round and reactive. Extraocular motions intact. No scleral icterus. No injection or drainage. ENT: Nose without bleeding, purulent drainage. Throat without erythema, tonsillar hypertrophy or exudate. Airway patent. NECK: Trachea midline. Non tender CARDIOVASCULAR: Regular rate and rhythm without murmurs, gallops, or rubs. RESPIRATORY: Clear to auscultation. Breath sounds equal bilaterally. No wheezes, rales, or rhonchi. GASTROINTESTINAL: Abdomen soft, non-tender, nondistended. EXTREMITIES: R hip pain on ambulating, minimal pain with axial loading. No numbness, weakness, tingling or obvious deformity BACK: Nontender without deformity or crepitance. No flank tenderness. NEURO: AOx3. SKIN: No rash or erythema of visible areas Initial Vital Signs Initial Vital Signs: Vital Signs Temperature 97.9 F 01/18/23 18:46 Pulse Rate 53 L 01/18/23 18:46 Respiratory Rate 14 01/18/23 18:46 Blood Pressure 133/63 01/18/23 18:46 Pulse Oximetry 97 01/18/23 18:46 Oxygen Delivery Method Room Air 01/18/23 18:46 Course Orders Ordered: Discontinued Medications Oxycodone HCl (Oxycodone Ir 5 Mg Tablet) 5 mg PO NOW ONE Stop: 01/18/23 20:41 Last Admin: 01/18/23 20:45 Dose: 5 mg Documented By: CHIKIS Vital Signs Vital signs: Vital Signs - 8 hr 01/18/23 23:31 01/19/23 00:27 Temperature 98.5 F 98 F Pulse Rate 60 Respiratory Rate 16 16 Blood Pressure 143/69 H 144/76 H Pulse Oximetry 98 98 Oxygen Delivery Method Room Air Room Air MDM - Extremity Injury (Lower) MDM Narrative Medical decision making narrative: [77] year old patient presents with hip pain Multiple etiologies for patient's symptoms considered including, but not limited to: [fracture vs. dislocation vs. labral injury vs. other] Prior Charts reviewed in our EMR Primary Historian: patient Imaging reviewed: Records reviewed from visit in [place], MRI shows no acute injury, x-ray shows possible avulsion. CT of bony pelvis acquired tonight without evidence of fracture Patient's symptoms improved over duration of stay with above-stated therapies. Findings and discharge diagnosis discussed with patient/family followed by verbalization of understanding Return precautions discussed with patient/family whom verbalize understanding of diagnosis and plan Discharge Plan Departure Patient Disposition: Home Clinical Impression: Acute pain of right hip Instructions: DI for Hip Pain Activity Restrictions/Additional Instructions: *You have been diagnosed with [right hip pain. As we discussed your history and physical exam are reassuring. We have reviewed recently acquired x-ray, CT scan and MRI and there is no significant or obvious finding that requires a specific intervention.] *What to do: *Please consider routine use of anti-inflammatories to help with your discomfort. Otherwise continue taking your prescribed medications [ ] New medication prescriptions sent to your pharmacy: [ ] [ ] New medication written as a paper prescription [ ] No new medications given *Please follow up with your [facility]. Please call the office later today, let them know you were seen in the emergency department and we would like you seen in follow-up. *Return to Emergency Department if you should have any new, worsening or concerning symptoms, such as [fever greater than 101 F, shaking chills, worsening pain, persistent vomiting or other bothersome symptoms] Prescriptions: No Action atorvastatin 40 mg tablet 40 mg PO DAILY aspirin 81 mg Tablet,Chewable 81 mg PO DAILY Referrals: Enedina No MD [Primary Care Provider] - Hernesto Arguelles MD [Physician] - Stand Alone Forms: Patient Portal/API
[2023-01-18 20:14] VITALS: BP 152/70; PULSE 51; RESP 16; TEMP 36.6
--- NOTE | 2023-01-18 20:40 | DI.CT.S_ITS ---
PROCEDURE: CT PEL WO CON INDICATIONS: known avulsion fracture R hip, plain films outside facility TECHNIQUE: Noncontrast 3 mm axial sections acquired through the bony pelvis, with coronal and sagittal reformatting. COMPARISON: None available. FINDINGS: Image quality: Excellent. Bones: No definite acute fracture or dislocation in the hips. The bony pelvis appears intact. There is a mild superior endplate compression fracture of the L5 vertebral body with approximately 30% loss of height. No retropulsed fragments in the spinal canal. There is moderate to severe facet arthropathy at L4-5. Minimal anterolisthesis demonstrated at L4-5. Soft tissues: There are linear calcifications along the distal gluteus medius tendon extending to the greater trochanter. 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 IMPRESSION: 1. Mild superior endplate compression fracture of the L5 vertebral body of indeterminate acuity. No associated retropulsed fragments in the spinal canal. 2. Linear calcifications along the right gluteus medius tendon extending to the greater trochanter suggestive of calcific tendinitis. 3. No definite fracture or dislocation in the hips. Dictated by: Ed De Jesus M.D. on 01/18/2023 at 22:28 Approved by: Ed De Jesus M.D. on 01/18/2023 at 22:32
[2023-01-18] MEDS: OXYCODONE IR 5 MG TABLET PO (20:45)
[2023-01-18 23:31] VITALS: BP 143/69; RESP 16; TEMP 36.9; O2SAT 98
[2023-01-19 00:27] VITALS: BP 144/76; PULSE 60; RESP 16; TEMP 36.6; O2SAT 98
== END 2023-01-19 00:28 | disposition home or self-care (01) ==
PROVIDERS: Emergency Provider Emergency Medicine; Family Provider Family Medicine; PCP Family Medicine
DX: M25.551 Pain in right hip (principal)
CPT/HCPCS: 72192; 99284

== ENCOUNTER → 2023-01-31 19:34 | Outpatient (CLI) | payer MEDICARE, OTHER, SELFPAY ==
[2022-11-26 13:55] VITALS: BMI 22.8
--- NOTE | 2023-01-31 19:36 | DI.MRI.S_ITS ---
PROCEDURE: MR LUMBAR SPINE WO CON INDICATIONS: Radiculopathy, lumbar region TECHNIQUE: Noncontrast sagittal T1 spin echo and T2 fast echo, sagittal STIR, and T2 fast spin echo through the lumbar spine. In cases with scoliosis, additional coronal T2 fast spin echo may be performed. COMPARISON: None. FINDINGS: Image quality: Motion degraded. Alignment and Curvature: Grade 1 anterolisthesis of L4 on L5. 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 Bone Marrow: Marrow is of normal overall signal. No acute vertebral body compression fractures. Spinal Cord: Conus medullaris terminates at the L1 level. Visualized cord demonstrates normal signal and size. Paraspinous Soft Tissues: Limited evaluation of the paraspinous soft tissue secondary to motion artifact T12-L1: No central canal or neural foraminal stenosis. L1-L2: No central canal or neural foraminal stenosis. L2-L3: Mild posterior disc bulge. Facet arthropathy. Mild central canal stenosis. Mild bilateral neural foraminal stenosis. L3-L4: Desiccation and small posterior disc bulge. Facet arthropathy and thickened ligamentum flavum. Mild to central canal stenosis. Moderate to severe right and mild left neural foraminal stenosis. L4-L5: Mild posterior disc bulge. Facet arthropathy and thickening of ligamentum flavum. Moderate central canal stenosis. Moderate to severe bilateral neural foraminal stenosis. L5-S1: Facet arthropathy. No central canal stenosis. Mild right neural foraminal stenosis. No left neural foraminal stenosis. IMPRESSION: 1. Motion degraded exam which limits evaluation. 2. Multilevel degenerative changes of the lumbar spine as described above. There is transitional anatomy with sacralization of the L5 vertebral body. Recommend correlation with radiographs prior to any intervention. 3. Moderate central canal stenosis at L4-5. 4. Moderate to severe bilateral neural foraminal stenosis at L4-5 and on the right at L3-L4. See above for additional levels of mild neural foraminal stenosis. Dictated by: Joaquin Hoffman M.D. on 02/01/2023 at 8:49 Approved by: Joaquin Hoffman M.D. on 02/01/2023 at 8:56
== END ==
PROVIDERS: Family Provider Family Medicine; PCP Family Medicine; Referring Provider Orthopaedic Surgery Adult Reconstructive Orthopaedic Surgery; Visit Provider Orthopaedic Surgery Adult Reconstructive Orthopaedic Surgery
DX: M47.26 Other spondylosis with radiculopathy, lumbar region (principal); M47.27 Other spondylosis with radiculopathy, lumbosacral region; M48.061 Spinal stenosis, lumbar region without neurogenic claudication; M48.07 Spinal stenosis, lumbosacral region; M43.27 Fusion of spine, lumbosacral region
CPT/HCPCS: 72148

== ENCOUNTER 2023-02-02 07:00 | Emergency (ER) | payer MEDICARE, OTHER, SELFPAY ==
[2022-11-26 13:55] VITALS: BMI 22.8
[2023-02-02 07:08] VITALS: BP 174/87; PULSE 71; RESP 18; TEMP 37.1; O2SAT 96; BMI 22.9
--- NOTE | 2023-02-02 08:02 | ED_ITS ---
HPI - Extremity Injury (Lower) General Chief Complaint: Extremity Injury, Lower Stated Complaint: rt leg pain, possible pinched nerve Time Seen by Provider: 02/02/23 07:52 Source: patient Mode of arrival: Wheelchair History of Present Illness HPI Narrative: Patient here with a friend. Friend is driving. Complains of right back pain radiating to the right knee. Patient just took his last part of his Medrol Dosepak this morning. Patient develop right lower back pain radiating to the right knee about 16 days ago. Since then he is an MRI physical therapy and has appointment with ortho spine in [place] tomorrow. He was on a steroid pack tapering.. Just finishing this morning. He states on day 1 of the steroid pack it helped his pain a lot. He has been on Neurontin/gabapentin as well as anti- inflammatories as well as opiate pain medication that has not helped him. He states the only thing that helped him was the steroids. He does have cardiac history. He does agree with short course of prednisone for the next couple of days as he has appointment tomorrow with his both spine surgeon. No saddle paresthesia. No bowel or bladder incontinence or retention. No foot numbness or weakness. Shoe and sock removed for exam. Patient examined in seated [place] [address] Magnetic Resonance Report Signed Patient: Karson Montano MR#: [id number] : 1945 Acct:[id number] Age/Sex: 77 / M Date of Service: 01/31/23 Loc: MRI Accession Number: [id number] ?? Procedure: MR lumbar spine wo con Ordering Provider: Kristopher Salazar MD PROCEDURE:? MR LUMBAR SPINE WO CON ? INDICATIONS:? Radiculopathy, lumbar region ? TECHNIQUE:? Noncontrast sagittal T1 spin echo and T2 fast echo, sagittal STIR, and T2 fast spin echo through the lumbar spine.? In cases with scoliosis, additional coronal T2 fast spin echo may be performed.? ? COMPARISON:? None. ? FINDINGS:? Image quality:? Motion degraded.? ? Alignment and Curvature:? Grade 1 anterolisthesis of L4 on L5.? 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 ? Bone Marrow:? Marrow is of normal overall signal.? No acute vertebral body compression fractures.? ? Spinal Cord:? Conus medullaris terminates at the L1 level.? Visualized cord demonstrates normal signal and size.? ? Paraspinous Soft Tissues:? Limited evaluation of the paraspinous soft tissue secondary to motion artifact ? T12-L1:? No central canal or neural foraminal stenosis. ? L1-L2:? No central canal or neural foraminal stenosis. ? L2-L3:? Mild posterior disc bulge.? Facet arthropathy.? Mild central canal stenosis.? Mild bilateral neural foraminal stenosis. ? L3-L4:? Desiccation and small posterior disc bulge.? Facet arthropathy and thickened ligamentum flavum.? Mild to central canal stenosis.? Moderate to severe right and mild left neural foraminal stenosis. ? L4-L5:? Mild posterior disc bulge.? Facet arthropathy and thickening of ligamentum flavum.? Moderate central canal stenosis.? Moderate to severe bilateral neural foraminal stenosis. ? L5-S1:? Facet arthropathy.? No central canal stenosis.? Mild right neural foraminal stenosis.? No left neural foraminal stenosis. ? ? IMPRESSION:? ? 1. Motion degraded exam which limits evaluation. 2. Multilevel degenerative changes of the lumbar spine as described above.? There is transitional anatomy with sacralization of the L5 vertebral body.? Recommend correlation with radiographs prior to any intervention. 3. Moderate central canal stenosis at L4-5. 4. Moderate to severe bilateral neural foraminal stenosis at L4-5 and on the right at L3-L4.? See above for additional levels of mild neural foraminal stenosis. ? ? ? Dictated by: Joaquin Hoffman M.D. on 02/01/2023 at 8:49 ? ? Approved by: Joaquin Hoffman M.D. on 02/01/2023 at 8:56 ? Related Data Home Medications Medication Instructions Recorded Confirmed aspirin 81 mg chewable tablet 81 mg PO DAILY 11/26/22 11/26/22 atorvastatin 40 mg tablet 40 mg PO DAILY 11/26/22 11/26/22 Previous Rx's Medication Instructions Recorded prednisone 20 mg tablet 40 mg (2 x 20 mg) PO DAILY #4 tabs 02/02/23 Allergies Allergy/AdvReac Type Severity Reaction Status Date / Time No Known Drug Allergies Allergy Verified 02/02/23 07:08 Review of Systems Review of Systems Narrative: GENERAL: negative chills, fatigue, malaise, fever, sweats. HEENT: negative sinus pain, ear pain, sore throat RESPIRATORY: negative dyspnea, cough CARDIOVASCULAR: negative chest pain, palpitations GASTROINTESTINAL: negative nausea, vomiting, abdominal pain : negative dysuria, frequency, hematuria MUSCULOSKELETAL: Positive muscle or bony pain SKIN: negative rash, skin lesions NEUROLOGIC: negative weakness, positive right knee numbness ROS Unobtainable: All systems reviewed & are unremarkable except as noted in HPI and below Patient History Family History Brother Age: 76 MS (multiple sclerosis) Social History household members: none Smoking Status: Former smoker alcohol intake: current Smoking Status: Former smoker alcohol intake frequency: 0-2 drinks per day Substance Use Type: does not use Exam Narrative Exam Narrative: GENERAL: in no distress, not toxic not dyspneic HEAD: Normocephalic. EYES: Pupils equal round CARDIOVASCULAR: Regular rate and rhythm RESPIRATORY: Clear to auscultation. Breath sounds equal bilaterally. No wheezes, rales, or rhonchi. EXTREMITIES: No gross deformities. BACK: No flank tenderness. In seated position, patient has right straight leg raise at 30?. On standing, no midline tenderness or step-off. Limited flexion- extension of the back due to pain. NEURO: AOx4. Light touch intact to foot and toes. Strong right patellar reflex and ankle flexion-extension. Wiggles toes. Strong pedal pulse. Foot warm soft and pink with brisk cap refills SKIN: Warm and dry PSYCH: Not anxious, is cooperative Initial Vital Signs Initial Vital Signs: Vital Signs Temperature 98.8 F 02/02/23 07:08 Pulse Rate 71 02/02/23 07:08 Respiratory Rate 18 02/02/23 07:08 Blood Pressure 174/87 H 02/02/23 07:08 Pulse Oximetry 96 02/02/23 07:08 Oxygen Delivery Method Room Air 02/02/23 07:08 Course Orders Ordered: Discontinued Medications Prednisone (Prednisone 20 Mg Tablet) 40 mg PO NOW ONE Stop: 02/02/23 08:02 Last Admin: 02/02/23 08:11 Dose: 40 mg Documented By: SCOTT Vital Signs Vital signs: Vital Signs - 8 hr 02/02/23 07:08 Temperature 98.8 F Pulse Rate 71 Respiratory Rate 18 Blood Pressure 174/87 H Pulse Oximetry 96 Oxygen Delivery Method Room Air MDM - Extremity Injury (Lower) [facility] Narrative Medical decision making narrative: Patient here with a friend. Friend is driving. Complains of right back pain radiating to the right knee. Patient just took his last part of his Medrol Dosepak this morning. Patient develop right lower back pain radiating to the right knee about 16 days ago. Since then he is an MRI physical therapy and has appointment with ortho spine in [place] tomorrow. He was on a steroid pack tapering.. Just finishing this morning. He states on day 1 of the steroid pack it helped his pain a lot. He has been on Neurontin/gabapentin as well as anti- inflammatories as well as opiate pain medication that has not helped him. He states the only thing that helped him was the steroids. He does have cardiac history. He does agree with short course of prednisone for the next couple of days as he has appointment tomorrow with his both spine surgeon. No saddle paresthesia. No bowel or bladder incontinence or retention. No foot numbness or weakness. Shoe and sock removed for exam. Patient examined in seated position. And standing position After history and exam prednisone ordered. Review of MRI. No additional laboratory studies or imaging indicated. Patient has had extensive follow up workup and is seeing ortho spine tomorrow [facility] CC: Right back pain Complicating co-morbidities: Sciatic Data collected from: Patient and friend Medical records reviewed: MRI from January 31, 2023 Differential considered: Includes but not limited to sciatica cord compression bulge disc herniated disc Exam documented above, pertinent findings include: Pain with straight leg raise Treatments: Prednisone Re-evaluations: Reviewed exam and MRI results with patient. Agrees with treatment plan. Short course of prednisone. Appointment already scheduled for ortho spine tomorrow. Return precautions reviewed with him. He desires discharge home. Discussion: Appropriate for discharge home. Patient had most benefit from prednisone, short course for a couple days appropriate. He has appointment tomorrow already with ortho spine. Otherwise no significant neuro deficits. No repeat MRI or blood work indicated. Not toxic at discharge. Patient desires discharge home. Return precautions reviewed with him Diagnosis: Sciatica Discharge Plan Departure Patient Disposition: Home Clinical Impression: Sciatica Instructions: DI for Sciatica Activity Restrictions/Additional Instructions: Please see the ortho spine surgeon tomorrow as scheduled. Please let the surgeon know your currently on steroid pills today tomorrow and the following day. Return if worse if any questions or concerns. Steroid medication can elevate your blood pressure soap please continue any home blood pressure medication and monitor blood pressure at home. Return if worse if any questions or concerns. See your family doctor within a week for re-evaluation of your blood pressure. Please continue your physical therapy and exercises. Prescriptions: New prednisone 20 mg tablet 40 mg PO DAILY Qty: 4 0RF No Action atorvastatin 40 mg tablet 40 mg PO DAILY aspirin 81 mg Tablet,Chewable 81 mg PO DAILY Referrals: Enedina No MD [Primary Care Provider] - Stand Alone Forms: Patient Portal/API
[2023-02-02 08:11] VITALS: BP 145/81; PULSE 68; O2SAT 99
[2023-02-02] MEDS: predniSONE 20 MG TABLET 40 MG PO (08:11)
== END 2023-02-02 08:24 | disposition home or self-care (01) ==
PROVIDERS: Emergency Provider Emergency Medicine; Family Provider Family Medicine; PCP Family Medicine
DX: M54.41 Lumbago with sciatica, right side (principal)
CPT/HCPCS: 99283

== ENCOUNTER → 2024-03-26 10:42 | Outpatient (CLI) | payer MEDICARE, OTHER, SELFPAY ==
[2022-11-26 13:55] VITALS: BMI 22.8
[2024-03-26 11:55] LABS: Add Manual Diff / Slide Review NO; Basophils Absolute Auto 0 /uL (0-100); Basophils Percent Auto 0.2 % (0-2); Eosinophils Absolute Auto 100 /uL (0-450); Eosinophils Percent Auto 1.6 % (2-4); Hematocrit 40.6 % (41-53); Hemoglobin 13.4 g/dL (13.5-17.5); Lymphocytes Absolute Auto 1300 /uL (1100-4500); Lymphocytes Percent Auto 34.4 % (25-40); Mean Corpuscular HGB Conc 33.1 % (30-36); Mean Corpuscular Hemoglobin 30.4 PG (26-34); Mean Corpuscular Volume 91.8 fL (80-100); Monocytes Absolute Auto 500 /uL (0-900); Monocytes Percent Auto 13.7 % (3-14); Neutrophils Absolute Auto 2000 /uL (1500-7000); Neutrophils Percent Auto 50.1 % (50-75); Platelet Count 132 X10^3/uL (150-400); Red Blood Cell Count 4.43 X10^6/uL (4.5-5.9); Red Cell Distribution Width 15.9 % (11.6-14.8); White Blood Cell Count 3.9 X10^3/uL (4.5-11.0)
[2024-03-26 12:23] LABS: HEMOLYSIS < 15 (0-50); Iron 84 ug/dL (49-181)
[2024-03-26 12:35] LABS: Percent Iron Saturation 20 % (20-50); Total Iron Binding Capacity 415 ug/dL (261-462); Transferrin 338 mg/dL (206-381)
[2024-03-26 12:57] LABS: Ferritin 12 ng/mL (18-464)
== END ==
PROVIDERS: Family Provider Family Medicine; PCP Family Medicine
DX: C64.9 Malignant neoplasm of unspecified kidney, except renal pelvis (principal); D64.9 Anemia, unspecified
CPT/HCPCS: 36415; 82728; 83540; 83550; 85025

== ENCOUNTER → 2024-06-04 11:59 | Outpatient (CLI) | payer MEDICARE, OTHER, SELFPAY ==
[2022-11-26 13:55] VITALS: BMI 22.8
[2024-06-04 13:38] LABS: Alanine Aminotransferase 38 IU/L (<50); Albumin 4.3 g/dL (3.5-5.0); Albumin Globulin Ratio 1.8 (1.0-2.8); Alkaline Phosphatase 72 U/L (38-126); Aspartate Aminotransferase 49 IU/L (17-59); BUN Creatinine Ratio 13.3 (6-22); Bilirubin Total 0.6 mg/dL (0.2-1.3); Blood Urea Nitrogen 13 mg/dL (9-20); Calcium 8.9 mg/dL (8.4-10.2); Carbon Dioxide 26 mmol/L (22-32); Chloride 102 mmol/L (98-107); Estimated Glomerular Filt Rate > 60 mL/min (>60); Globulin 2.4 g/dL (1.7-4.1); Glucose 88 mg/dL (80-110); HEMOLYSIS < 15 (0-50); Potassium 4.2 mmol/L (3.4-5.1); Sodium 136 mmol/L (137-145); Total Protein 6.7 g/dL (6.3-8.2)
== END ==
PROVIDERS: Family Provider Family Medicine; PCP Family Medicine; Referring Provider Nurse Practitioner Family; Visit Provider Nurse Practitioner Family
DX: R19.4 Change in bowel habit (principal); D64.9 Anemia, unspecified
CPT/HCPCS: 36415; 80053